=== PATIENT | male | born 1965 | race Caucasian/White ===

== ENCOUNTER 2019-10-15 17:56 | Emergency (ER) | payer MEDICAID ==
[~2019-10-15] VITALS: Ht 167.6 cm; Wt 68.0 kg
[~2019-10-15 17:56] MED LIST: TYLENOL325 MG ORAL
[2019-10-15 18:11] VITALS: BP 110/70
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
[2019-10-15] MEDS ORDERED: TYLENOL EXTRA500 MG ORAL (19:50)
[2019-10-15] MEDS ORDERED: ROBAXIN-750750 MG PO (19:50)
[2019-10-15 19:54] VITALS: BP 110/70
== END 2019-10-15 19:55 | disposition home or self-care (01) ==
LOC: EDBD 17:56 → EMR 19:40
DX: S16.1XXA Strain of muscle, fascia and tendon at neck level, initial encounter (principal); Z87.820 Personal history of traumatic brain injury; S00.83XA Contusion of other part of head, initial encounter; Y04.8XXA Assault by other bodily force, initial encounter; Y92.9 Unspecified place or not applicable; Z88.6 Allergy status to analgesic agent
CPT/HCPCS: 70450; 72125; Z7502; 99284